=== PATIENT | male | born 2000 | race Caucasian/White ===

== ENCOUNTER 2019-12-12 16:10 | Emergency (ER) | payer MEDICAID ==
[~2019-12-12] VITALS: Ht 180.3 cm; Wt 65.8 kg
--- NOTE | 2019-12-12 16:10 | NUR ---
Patient BIBA BLS accompanied by [place] [employer], transferred to bed 7. RN evaluating patient at bedside.
[2019-12-12 16:12] VITALS: BP 155/79
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
--- NOTE | 2019-12-12 16:26 | NUR ---
Pt is taken to CT scan, police cadet and tech escort.
--- NOTE | 2019-12-12 16:28 | NUR ---
Patient taken to CT scan via gurney by keiko, accompanied by PD.
--- NOTE | 2019-12-12 16:44 | NUR ---
Pt RR 8 per minute, O2 sat at 87% room air. Instructed patient to take deep breaths. RR at 11, O2 sat at 97% room air. Will continue to monitor. HR 97.
--- NOTE | 2019-12-12 16:48 | NUR ---
RECCOMENDED IMRELAAN TO DR. CAMPBELL FOR RR 8 AND O2 SATS DROPPING TO 88 WHEN PT FALLS ASLEEP. PT UNABLE TO HOLD CONVERSATION DUE TO FALLING ASLEEP MID SENTENCE. PUPILS PINPOINT. DR. CAMPBELL ASSESSING PT AT BEDSIDE AT THIS TIME.
--- NOTE | 2019-12-12 16:48 | NUR ---
Dr. Lopez is evaluating the patient at bedside.
[2019-12-12 17:14] LABS: BARBITURATE, URINE NEGATIVE ng/ml (NEG <=200); BENZODIAZEPINE, URINE POSITIVE ng/mL (NEG <=200); CANNABINOID, URINE POSITIVE ng/mL (NEG <=50); COCAINE, URINE NEGATIVE ng/mL (NEG <=300); OPIATE, URINE POSITIVE ng/mL (NEG <=2000); PHENCYCLIDINE SCREEN,URINE NEGATIVE ng/mL (NEG <=25)
--- NOTE | 2019-12-12 19:15 | NUR ---
report given to JOSE Lowe. Transfer of care at this time
--- NOTE | 2019-12-12 19:15 | NUR ---
RECEIVED CONTINUITY OF CARE FROM IVAN GARCIA. PT LAYING IN BED IN NO ACUTE DITRESS NOTED. BREATHING WAS EVEN AND UNLABORED. BED LOCKED AND PLACED IN LOWEST POSITION.
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
--- NOTE | 2019-12-12 19:42 | NUR ---
PROJ ENGINEER CALLED FOR [employer].
--- NOTE | 2019-12-12 20:10 | NUR ---
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 ETA 45 MIN.
[2019-12-12 20:25] VITALS: BP 137/94
--- NOTE | 2019-12-12 20:25 | NUR ---
Patient discharged with v/s stable. Written and verbal after care instructions given and explained. Patient alert, oriented and verbalized understanding of instructions. Ambulatory to [facility]. All questions addressed prior to discharge. ID band removed. Patient advised to follow up with PMD. Rx of motrin and norco given. Patient educated on indication of medication including possible reaction and side effects. Opportunity to ask questions provided and answered.
== END 2019-12-12 20:25 | disposition home or self-care (01) ==
LOC: MED 16:10
DX: F10.129 Alcohol abuse with intoxication, unspecified (principal); E03.9 Hypothyroidism, unspecified; E05.00 Thyrotoxicosis with diffuse goiter without thyrotoxic crisis or storm; F17.210 Nicotine dependence, cigarettes, uncomplicated; F12.90 Cannabis use, unspecified, uncomplicated; F41.9 Anxiety disorder, unspecified; Z90.49 Acquired absence of other specified parts of digestive tract; V89.2XXA Person injured in unspecified motor-vehicle accident, traffic, initial encounter; Y93.89 Activity, other specified; Y92.89 Other specified places as the place of occurrence of the external cause; Y99.8 Other external cause status
CPT/HCPCS: 70450; 80305; 99284